=== PATIENT | female | born 1935 | race Caucasian/White ===

== ENCOUNTER 2020-11-13 10:42 | Emergency (ER) | payer OTHER ==
[~2020-11-13] VITALS: Ht 172.7 cm; Wt 65.8 kg
--- NOTE | 2020-11-13 10:42 | NUR ---
85 YO F BIBA FROM [facility] FOR C/C OF 03/03 LEFT ARM PAIN DESCRIBED "STABBING" THAT COMES AND GOES. PT STATES SHE MOVED HER ARM "NORMALLY" WHEN PAIN BEGAN AT 0800. PT DENIES CP, SOB, DIZZINESS, N/V/D. PT REPORTS HX OF LEFT ARM FRACTURE FROM FALL TEN YEARS AGO, L SHOULDER REPLACEMENT WITH RODS PLACED IN UPPER AND LOWER ARM. CMS INTACT BILATERALLY. BED LOCKED AND IN LOWEST POSITION. SIDE RAILS X2.
[2020-11-13 10:43] VITALS: BP 165/72
--- NOTE | 2020-11-13 10:45 | NUR ---
DR. MOJICA AT BEDSIDE EXAMINING PT
--- NOTE | 2020-11-13 11:00 | NUR ---
RAD AT BEDSIDE
[2020-11-13 13:33] VITALS: BP 165/72
--- NOTE | 2020-11-13 13:33 | NUR ---
Patient discharged with v/s stable. Written and verbal after care instructions given and explained. Patient verbalized understanding. Ambulatory with by caregiver. All questions addressed prior to discharge. Advised to follow up with PMD.
== END 2020-11-13 13:33 | disposition home or self-care (01) ==
LOC: MED 10:42
DX: S56.212A Strain of other flexor muscle, fascia and tendon at forearm level, left arm, initial encounter (principal); I10 Essential (primary) hypertension; Z88.5 Allergy status to narcotic agent; X50.0XXA Overexertion from strenuous movement or load, initial encounter; Y93.89 Activity, other specified; Y92.89 Other specified places as the place of occurrence of the external cause; Y99.8 Other external cause status
CPT/HCPCS: 73030; 73080; 73110; 99284

== ENCOUNTER 2020-11-25 21:38 | Emergency (ER) | payer OTHER ==
[~2020-11-25] VITALS: Ht 149.9 cm; Wt 59.0 kg
[2020-11-25 21:45] VITALS: BP 128/59
--- NOTE | 2020-11-25 21:48 | NUR ---
Pt BIBA to ER bed 7.
--- NOTE | 2020-11-25 21:55 | NUR ---
PT IS AN 85 Y.O. FEMALE BIBA FOR ALOC. PER EMS PT WAS HAVING HALLUCINATIONS AT [facility], [facility]. PT STATES SEEING ANIMALS AND MEN WITH FLASHLIGHTS. PT IS A&OX1. ABLE TO STATE HER NAME AND WHERE SHE LIVES. PT DOES NOT APPEAR TO BE IN ANY DISTRESS. BREATHING IS UNLABORED. DENIES PAIN. PT HAS ALLERGIES TO MORPHINE. PMH: DEMENTIA, CHF, VFIB, HTN, AND HLD. WILL CONTINUE TO MONITOR.
--- NOTE | 2020-11-25 22:10 | NUR ---
PT PICKED UP BY [facility] FOR CT HEAD W/O CONTRAST.
--- NOTE | 2020-11-25 22:16 | NUR ---
PT IS BACK FROM CT HEAD W/O CONTRAST. PT IS STABLE.
--- NOTE | 2020-11-25 22:33 | NUR ---
PT IS LAYING IN SEMI FOWLERS POSITION. INSTRUCTED HER TO INFORM ME WHEN SHE NEEDS TO VOID BECAUSE WE NEED A URINE SAMPLE. PT VERBALIZED UNDERSTANDING. PT IS RESPONDING APPROPRIATELY. NO DISTRESS NOTED. PT IS STABLE.
--- NOTE | 2020-11-25 22:38 | NUR ---
MANAGER DAIRY AT BEDSIDE COLLECTING BLOOD SAMPLE.
[2020-11-25 23:02] LABS: BASOPHILS # (AUTO) 0.2 K/uL (0.00-0.22); EOSINOPHILS # (AUTO) 0.1 K/uL (0-0.4); EOSINOPHILS % (AUTO) 1.4 % (0.0-4.0); HEMATOCRIT 36.8 % (36-48); HEMOGLOBIN 12.1 g/dL (12.0-16.0); LYMPHOCYTES # (AUTO) 2.3 K/uL (2.5-16.5); LYMPHOCYTES % (AUTO) 30.1 % (20.5-51.1); MEAN CORPUSCULAR HEMOGLOBIN 30 pg (27-31); MEAN CORPUSCULAR HGB CONC 33 g/dL (33-37); MONOCYTES # (AUTO) 0.4 K/uL (0.8-1.0); MONOCYTES % (AUTO) 5.9 % (1.7-9.3); NEUTROPHILS # (AUTO) 4.6 K/uL (1.8-7.7); NEUTROPHILS % (AUTO) 60.6 % (42.2-75.2); PLATELET COUNT (AUTO) 171 K/uL (140-450); RED CELL DISTRIBUTION WIDTH 15.4 % (11.6-13.7); WHITE BLOOD COUNT (AUTO) 7.6 K/uL (4.8-10.8)
[2020-11-25 23:51] LABS: ALBUMIN 3.4 g/dL (3.4-5.0); ANION GAP 12.3 (8-16); ASPARTATE AMINOTRANSFERASE 19 U/L (15-37); CARBON DIOXIDE 28.5 mmol/L (21-32); CHLORIDE 105 mmol/L (98-107); CREATININE 1.1 mg/dL (0.6-1.3); GLUCOSE 105 mg/dL (74-106); POTASSIUM 3.8 mmol/L (3.5-5.1); SODIUM SERUM 142 mmol/L (136-145); TOTAL BILIRUBIN 0.6 mg/dL (0.0-1.0); UREA NITROGEN, BLOOD 19 mg/dL (7-18)
--- NOTE | 2020-11-26 | NUR ---
PT AMBULATED TO THE RESTROOM WITH ASSITANCE. PT'S GAIT IS UNSTEADY. BACK TO BED. PT IS STABLE.
[2020-11-26] MEDS ORDERED: cephALEXin 500 MG CAP PO ONE (00:05)
[2020-11-26] MEDS ORDERED: CEPH-588 PO (00:10)
[2020-11-26 00:24] LABS: APPEARANCE,URINE CLEAR (CLEAR); BILIRUBIN,URINE NEGATIVE (NEGATIVE); BLOOD, URINE NEGATIVE (NEGATIVE); COLOR,URINE YELLOW (YELLOW); LEUKOCYTE ESTERASE ,URINE 1+ (NEGATIVE); NITRITE, URINE NEGATIVE (NEGATIVE); UGLUCOSE NEGATIVE (NEGATIVE)
[2020-11-26 00:42] LABS: BARBITURATE, URINE NEGATIVE ng/ml (NEG <=200); BENZODIAZEPINE, URINE NEGATIVE ng/mL (NEG <=200); CANNABINOID, URINE NEGATIVE ng/mL (NEG <=50); COCAINE, URINE NEGATIVE ng/mL (NEG <=300); OPIATE, URINE NEGATIVE ng/mL (NEG <=2000); PHENCYCLIDINE SCREEN,URINE NEGATIVE ng/mL (NEG <=25)
[2020-11-26 00:56] LABS: RBC,URINE 0-5 /HPF (0-5); WBC,URINE 20-60 /HPF (0-5)
--- NOTE | 2020-11-26 01:03 | NUR ---
CALLED BOTH DAUGHTERS LISTED IN THE CHART TO ARRANGE FOR TRANSPORTATION FOR THE PT BACK TO HER FACILITY. LEFT MESSAGES ON BOTH PHONE NUMBERS. WILL WAIT FOR A CALL BACK.
--- NOTE | 2020-11-26 02:33 | NUR ---
PT IS ASLEEP. CHEST RISE AND FALL IS SYMMETRICAL. BREATHING IS UNLABORED. PT IS STABLE.
--- NOTE | 2020-11-26 04:30 | NUR ---
PT WAS ASSISTED TO THE RESTROOM. PT'S GAIT WAS UNSTEADY. PT IS BACK TO THE [facility]. COVERED WITH BLANKETS AND STABLE.
[2020-11-26] MEDS ORDERED: ACETAMINOPHEN EXTRA STRENGTH 500 MG TAB PO ONE (05:15)
--- NOTE | 2020-11-26 05:22 | NUR ---
PT STATES SHE HAS A HEADACHE AT A SCALE OF 6/10 AND WAS GIVEN TYLENOL FOR HEADACHE. PT STATES IT IS FROM LACK OF SLEEP. PAIN IS ACHING IN CHARACTERISTIC. WILL MONITOR.
--- NOTE | 2020-11-26 07:12 | NUR ---
ENDORSED PT TO DAY SHIFT NURSEJANEEN FOR CONTINUITY OF CARE.
[2020-11-26 08:43] VITALS: BP 111/40
--- NOTE | 2020-11-26 08:44 | NUR ---
Patient discharged with v/s stable. Written and verbal after care instructions given and explained. Patient alert, oriented and verbalized understanding of instructions. Wheel Chair Assisted with to car. All questions addressed prior to discharge. ID band removed. Patient advised to follow up with PMD. Rx of CEPHALEXIN given. Patient educated on indication of medication including possible reaction and side effects. Opportunity to ask questions provided and answered.
== END 2020-11-26 08:24 ==
LOC: MED 21:38
DX: R41.0 Disorientation, unspecified (principal); R82.71 Bacteriuria; I11.0 Hypertensive heart disease with heart failure; I50.9 Heart failure, unspecified; F03.90 Unspecified dementia, unspecified severity, without behavioral disturbance, psychotic disturbance, mood disturbance, and anxiety; E78.5 Hyperlipidemia, unspecified; Z88.5 Allergy status to narcotic agent; Z79.899 Other long term (current) drug therapy
CPT/HCPCS: 36415; 70450; 80053; 80305; 81001; 82140; 85025; 87086; 99284; G0482

== ENCOUNTER 2021-05-10 10:16 | Emergency (ER) | payer OTHER ==
[~2021-05-10] VITALS: Ht 154.9 cm; Wt 65.8 kg
[~2021-05-10 10:16] MED LIST: CEPH-588 PO
[2021-05-10 10:25] VITALS: BP 144/72
--- NOTE | 2021-05-10 10:32 | NUR ---
PT W/C ASSISTED TO BED 11.
--- NOTE | 2021-05-10 10:35 | NUR ---
DR. GRANADO AT PT BEDSIDE FOR FURTHER EVALUATION.
--- NOTE | 2021-05-10 10:37 | NUR ---
BIB DAUGHTER FROM [facility] C/O 12/01 LEFT SHOULDER, LEFT ELBOW, LEFT HAND PAIN X TODAY. DENIES RECENTLY TRAUMA/INJURY. PMH: LEFT SHOULDER & LEFT ELBOW REPLACEMNT
[2021-05-10] MEDS ORDERED: KETOROLAC 60 MG/2 ML VIAL IM ONE (10:40)
--- NOTE | 2021-05-10 11:39 | NUR ---
ANIMAL DOCTOR AT PT BEDSIDE.
[2021-05-10] MEDS ORDERED: IBUP-2213 PO (12:44)
[2021-05-10 12:57] VITALS: BP 137/82
== END 2021-05-10 12:52 | disposition home or self-care (01) ==
LOC: MED 10:16
DX: M79.602 Pain in left arm (principal); I10 Essential (primary) hypertension; Z79.899 Other long term (current) drug therapy; Z98.890 Other specified postprocedural states; Z88.5 Allergy status to narcotic agent
CPT/HCPCS: 73030; 73080; 96372; 99284; J1885